=== PATIENT | female | born 1955 | race African-American/Black ===

== ENCOUNTER 2023-12-30 15:59 | Emergency (ER) | payer MEDICARE, OTHER ==
[~2023-12-30] VITALS: Ht 152.4 cm; Wt 81.6 kg
[2023-12-30] MEDS ORDERED: AMLODIPINE BESY10 MG PO (17:26)
[2023-12-30 17:45] VITALS: PULSE 51; RESP 14; TEMP 99.1; O2SAT 99
[2023-12-30] MEDS ORDERED: CLONIDINE HCL0.1 MG PO (17:46)
[2023-12-30] MEDS ORDERED: HYDROCHLOROTHIA25 MG PO (17:46)
[2023-12-30] MEDS ORDERED: LOSARTAN POTASS25 MG PO (17:46)
[2023-12-30] MEDS ORDERED: NIFEDIPINE ER30 M1 PO (17:46)
[2023-12-30] MEDS ORDERED: ROSUVASTATIN CA20 MG (17:46)
[2023-12-30] MEDS ORDERED: METHOTREXA25 MG/1 ML SC (17:46)
== END 2023-12-30 17:45 | disposition home or self-care (01) ==
LOC: FSED 16:16
DX: I10 Essential (primary) hypertension (principal); M06.9 Rheumatoid arthritis, unspecified
CPT/HCPCS: 99283